=== PATIENT | male | born 1950 | race Caucasian/White ===

== ENCOUNTER 2024-06-23 09:24 | Emergency (ER) | payer MEDICARE ==
[~2024-06-23] VITALS: Ht 172.7 cm; Wt 68.0 kg
[2024-06-23] MEDS ORDERED: Diazepam 5 MG / ML 2ML SYR IV ONE (10:00)
[2024-06-23] MEDS ORDERED: Lactated Ringer's 1,000 ML IV ONE ×2 (10:00→11:40)
[2024-06-23] MEDS ORDERED: CloNIDine 0.1 MG Tab PO ONE (10:00)
[2024-06-23 10:23] LABS: BASOPHILS ABSOLUTE AUTO 0.02 K/mm3 (0.00-0.23); BASOPHILS PERCENT AUTO 0 % (0-2); EOSINOPHILS ABSOLUTE AUTO 0.02 K/mm3 (0.00-0.68); EOSINOPHILS PERCENT AUTO 0 % (0-6); Hematocrit 34.2 % (37.0-53.0); Hemoglobin 11.7 g/dL (13.5-17.5); IMMATURE GRAN ABSOLUTE AUTO 0.03 K/mm3 (0.00-0.10); IMMATURE GRAN PERCENT AUTO 0 % (0-1); LYMPHOCYTES PERCENT AUTO 10 % (21-46); MONOCYTES ABSOLUTE AUTO 0.58 K/mm3 (0.16-1.47); MONOCYTES PERCENT AUTO 4 % (4-13); Mean Corpuscular HGB 31.9 pg (26.0-34.0); Mean Corpuscular HGB Conc 34.2 g/dL (31.5-36.5); Mean Corpuscular Volume 93 fL (80-100); Mean Platelet Volume 9.4 fL (9.1-12.4); NEUTROPHILS ABSOLUTE AUTO 11.54 K/mm3 (1.96-9.15); NEUTROPHILS PERCENT AUTO 86 % (41-73); Platelet Count 239 K/mm3 (150-400); RDW Coefficient Variation 12.9 % (11.7-14.2); RDW Standard Deviation 43.9 fL (35.1-46.3); Red Blood Cell Count 3.67 M/mm3 (4.30-5.90); White Blood Cell Count 13.49 K/mm3 (4.00-11.30)
[2024-06-23 10:35] LABS: Albumin, Blood 3.3 g/dL (3.4-5.0); Bilirubin, Total 0.9 mg/dL (0.1-1.0); Bun/Creatinine Ratio 20.7 (12.0-20.0); Calcium, Blood 8.3 mg/dL (8.5-10.1); Creatinine, Blood 0.48 mg/dL (0.60-1.20); Globulin, Blood 3.4 g/dL (2.2-4.0); Magnesium, Blood 1.9 mg/dL (1.6-2.4); Total Protein, Blood 6.7 g/dL (6.4-8.2)
[2024-06-23] MEDS ORDERED: Dicyclomine HCl 20 MG Tab PO ONE (11:10)
[2024-06-23] MEDS ORDERED: CATAPRES0.2 M1 PO (13:00)
[2024-06-23] MEDS ORDERED: ONDA4ODT MM (13:00)
== END 2024-06-23 14:00 | disposition home or self-care (01) ==
LOC: ER 09:24
PROVIDERS: Physician Assistant
DX: F11.93 Opioid use, unspecified with withdrawal (principal)
CPT/HCPCS: 80053; 83690; 83735; 85025; 96361; 96374; 99284-25; A9270; J3360; J7120